=== PATIENT | male | born 2000 | race Caucasian/White ===

== ENCOUNTER 2021-03-13 16:44 | Outpatient (CLI) | payer BC ==
[2021-03-14 01:53] LABS: SARS-CoV-2 PCR by NAA Not Detected (NotDetected)
== END 2021-03-13 16:45 | disposition home or self-care (01) ==
LOC: CSHLAB 16:44
PROVIDERS: ATTEND Otolaryngology Plastic Surgery within the Head & Neck
DX: Z20.822 Contact with and (suspected) exposure to COVID-19 (principal); J34.89 Other specified disorders of nose and nasal sinuses
CPT/HCPCS: 87635; U0003; U0005

== ENCOUNTER 2021-03-17 10:12 | Day surgery (SDC) | payer BC ==
[2021-03-14 08:40] VITALS: BMI 22.8
[2021-03-17] MEDS ORDERED: Lidocaine 1% MPF 2 ML VIAL ONE (11:43)
[2021-03-17] MEDS ORDERED: Oxymetazoline HCl 0.05% ( 15 ML ) ONE ×2 (11:43→13:24)
[2021-03-17] MEDS ORDERED: Lidocaine 1% w/Epinephrine 1:100K 20 ML VIAL ONE (13:24)
[2021-03-17] MEDS ORDERED: Mupirocin 2% Ointment 22 GM Tube ONE (13:24)
[2021-03-17] MEDS ORDERED: CEFAZOLIN 1 GM VIAL ONE (13:37)
[2021-03-17] MEDS ORDERED: Rocuronium Bromide 10 MG/ML (10ML VIAL) ONE (13:40)
[2021-03-17] MEDS ORDERED: PROPOFOL 20 ML ONE (13:40)
[2021-03-17] MEDS ORDERED: Ondansetron PF 4 MG/2 ML Vial ONE (13:40)
[2021-03-17] MEDS ORDERED: Glycopyrrolate 0.2 MG/ML 5 ML SYRINGE ONE (13:40)
[2021-03-17] MEDS ORDERED: Fentanyl 100 MCG/2 ML VIAL ONE (13:40)
[2021-03-17] MEDS ORDERED: Midazolam HCl 2 mg/2 ml Vial ONE (13:40)
[2021-03-17] MEDS ORDERED: Lidocaine 1% PF 5 ML VIAL ONE (13:40)
[2021-03-17] MEDS ORDERED: Dexamethasone 4 mg/ml Vial ONE (13:58)
[2021-03-17] MEDS ORDERED: Morphine 1 ML ONE (17:28)
== END 2021-03-17 19:35 | disposition home or self-care (01) ==
LOC: CSHSDC 10:12
PROVIDERS: ATTEND Otolaryngology Plastic Surgery within the Head & Neck
DX: H72.92 Unspecified perforation of tympanic membrane, left ear (principal); H92.12 Otorrhea, left ear; J34.2 Deviated nasal septum; J34.3 Hypertrophy of nasal turbinates; M95.0 Acquired deformity of nose; J34.89 Other specified disorders of nose and nasal sinuses
CPT/HCPCS: J0690; J1100; J2250; J2270; J2405; J2704; J3010